=== PATIENT | female | born 1970 | race Caucasian/White ===

== ENCOUNTER 2016-10-06 11:52 | Outpatient (CLI) | payer MEDICARE, OTHER ==
[2016-09-14 10:01] VITALS: BP 163/93
--- NOTE | 2016-10-06 14:42 | Diagnostic Imaging Report ---
[facility] [address] [facility].[address] 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 Difficulty breathing, wheezing for 2 weeks. FINDINGS: Examination of the chest in PA and lateral views with comparison to examination of 06/24/2016 demonstrates infiltrates in the right chest. Infiltrates are less extensive than that seen in June. There is patchy infiltrate also in the left lower lobe. The cardiovascular and mediastinal silhouettes are stable. IMPRESSION: Bilateral infiltrates worse on the right. Electronically signed on Oct 06, 2016 1:51:21 PM PAD MACHINE OPERATOR by: Zana ALMEIDA
== END 2016-10-06 11:53 ==
LOC: LAB 11:52
PROVIDERS: ATTEND Family Medicine
DX: J40 Bronchitis, not specified as acute or chronic (principal)
CPT/HCPCS: 71020

== ENCOUNTER 2016-10-09 12:47 | Emergency (ER) | payer MEDICARE, OTHER ==
[2016-10-09] MEDS ORDERED: ASPIRIN 325 MG TABLET PO ONE (13:01)
--- NOTE | 2016-10-09 13:22 | ED Physician Documentation ---
Chest Pain - HISTORIAN Historian: patient - HPI Stated Complaint: cough, congestion, SOA Chief Complaint: Upper Respiratory Symptoms Additional Information: 46 yo F with ESRD on dialysis M/W/F here for cough, body aches, subjective fever. Also had brief episode of mid sternal sharp CP just after a cough that only lasted a few seconds. She has never had this type of CP before. She did not get dialysis today. Just prior to transport she had a generalized tonic clonic seizure. She states she does have seizure disorder, on several meds for this including depakote. Last known Well Date: 10/10/16 Last Known Well Time: 00:00 - ROS CONST: none MS/LYMPH: none GI/: none EYES/ENT: none SKIN/ENDO: none NEURO/PSYCH: none - PAST HX MD risk factors: hypertension, diabetes Type 2, other (CKD) GI disease: GERD Lung disease: none Allergies/Adverse Reactions: Allergies Allergy/AdvReac Type Severity Reaction Status Date / Time acetaminophen [From Midol] Allergy Verified 10/09/16 13:20 chocolate flavor Allergy Verified 10/09/16 13:20 NSAIDS (Non-Steroidal Allergy Verified 10/09/16 13:20 Anti-Inflamma pamabrom [From Midol] Allergy Verified 10/09/16 13:20 phenytoin sodium Allergy Verified 10/09/16 13:20 [From Dilantin] phenytoin sodium extended Allergy Verified 10/09/16 13:20 [From Dilantin] diphenhydramine HCl AdvReac Face Verified 10/09/16 13:20 [From Benadryl] Swelling Home Medications: Ambulatory Orders Medication Instructions Recorded Atorvastatin Calcium [Lipitor] 80 mg PO HS 10/20/15 Calcium Acetate 667 mg PO TID 10/20/15 Cinacalcet HCl [Sensipar] 30 mg PO D 10/20/15 Escitalopram Oxalate [Lexapro] 20 mg PO D 10/20/15 Gabapentin 100 mg PO HS 10/20/15 Lisinopril 25 mg PO D 10/20/15 Paricalcitol [Zemplar] 2 mcg PO [id number] 10/20/15 Sucralfate [Carafate] 1 gm PO BID 10/20/15 Vit B Comp&C/Folic Acid/Vit D3 1 tab PO D 10/20/15 [Dialyvite 800 Plus D Wafer] levETIRAcetam [Keppra] 500 mg PO BID 10/20/15 Divalproex Sodium [Divalproex 500 mg PO BID 01/17/16 Sodium ER] Ergocalciferol (Vitamin D2) 50,000 unit PO WEEK 01/17/16 [Vitamin D2] Hydrocortisone Acetate [Anusol-Hc] 21 gm RC BID PRN #14 oint...g. 01/17/16 Medroxyprogesterone Acetate 10 mg PO DAILY 01/17/16 [Provera] Ondansetron HCl Rapdis [Zofran ODT] 4 mg PO Q6 PRN 01/17/16 Topiramate [Topamax] 100 mg PO BID 01/17/16 Vit B Cplx #11/FA/C/Biot/Zn Ox 1 each PO 1800 01/17/16 [Dialyvite with Zinc Tablet] Amoxicillin [Trimox] 500 mg PO TID #30 capsule 06/24/16 Azithromycin [Zithromax] 250 mg PO DAILY #4 tablet 06/24/16 Doxycycline Monohydrate 100 mg PO BID #20 tablet 06/24/16 - SOCIAL HX Smoking History: quit greater than 1 year Alcohol Use: none Drug Use: none - FAMILY HX Family HX: none - VITAL SIGNS Vital Signs: Vital Signs Temp Pulse Resp BP Pulse Ox 98.2 F 76 15 155/98 99 10/09/16 13:08 10/09/16 13:08 10/09/16 13:08 10/09/16 13:08 10/09/16 13:08 - REVIEWED ASSESSMENTS Nursing Assessment Reviewed: Yes Vitals Reviewed: Yes ED Results Lab/Radiology - Orders Orders: ED Orders Category Date Time Status CHEST 2 VIEW [CHEST P.A.&LAT 2 VIEWS] [RAD] Stat Exams 10/09/16 13:01 Ordered TROPONIN I (cTnI) Stat Lab 10/09/16 13:05 Received VALPROIC ACID LEVEL Stat Lab 10/09/16 13:05 Received Aspirin Med 10/09/16 13:01 Discontinued 325 mg PO NOW ONE EKG WITH COMPARISON Stat Ther 10/09/16 13:01 Completed Chest Pain Physical Exam - EXAM General Appearance: no acute distress EENT: ENT inspection normal Neck: nml inspection. No: lymphadenopathy Respiratory: no resp. distress, chest non-tender, nml breath sounds CVS: reg. rate & rhythm, no murmur, pulses equal Abdomen: soft, no organomegaly, normal bowel sounds, no distension, non-tender Skin: warm/dry, normal color Extremities: other (fistula LUE with palpable thrill) Neuro: oriented X3 Discharge Clincal Impression: Pneumonia Qualifiers: Pneumonia type: due to unspecified organism Laterality: left Lung location: lower lobe of lung Qualified Code(s): J18.1 - Lobar pneumonia, unspecified organism Referrals: Bharat Ruiz MD [Primary Care Provider] - 2 Days Home Medications: Ambulatory Orders Atorvastatin Calcium [Lipitor] 80 mg PO HS 10/20/15 Calcium Acetate 667 mg PO TID 10/20/15 Cinacalcet HCl [Sensipar] 30 mg PO D 10/20/15 Escitalopram Oxalate [Lexapro] 20 mg PO D 10/20/15 Gabapentin 100 mg PO HS 10/20/15 Lisinopril 25 mg PO D 10/20/15 Paricalcitol [Zemplar] 2 mcg PO [id number] 10/20/15 Sucralfate [Carafate] 1 gm PO BID 10/20/15 Vit B Comp&C/Folic Acid/Vit D3 [Dialyvite 800 Plus D Wafer] 1 tab PO D 10/20/15 levETIRAcetam [Keppra] 500 mg PO BID 10/20/15 Divalproex Sodium [Divalproex Sodium ER] 500 mg PO BID 01/17/16 Ergocalciferol (Vitamin D2) [Vitamin D2] 50,000 unit PO WEEK 01/17/16 Hydrocortisone Acetate [Anusol-Hc] 21 gm RC BID PRN #14 oint...g. 01/17/16 Medroxyprogesterone Acetate [Provera] 10 mg PO DAILY 01/17/16 Ondansetron HCl Rapdis [Zofran ODT] 4 mg PO Q6 PRN 01/17/16 Topiramate [Topamax] 100 mg PO BID 01/17/16 Vit B Cplx #11/FA/C/Biot/Zn Ox [Dialyvite with Zinc Tablet] 1 each PO 1800 01/16 Amoxicillin [Trimox] 500 mg PO TID #30 capsule 06/24/16 Azithromycin [Zithromax] 250 mg PO DAILY #4 tablet 06/24/16 Doxycycline Monohydrate 100 mg PO BID #20 tablet 06/24/16 Comments: found to have PNA, had been treated for recently. Will place on doxy. Vs are stable, no tachycardia, hypoxia, hypotension. RTC prn. F/U With PCM 2 days. Condition: Good Disposition: 01 HOME, SELF-CARE Decision to Admit: NO Decision Time: 14:35
--- NOTE | 2016-10-09 14:31 | Diagnostic Imaging Report ---
KULDEEP HUMMEL [facility] [address] [facility] [address] [address] Report Submission Date: Oct 09, 2016 1:59:24 PM AIRFIELD MANAGER Patient Study Name: TUSHAR BROWNE Date: Oct 09, 2016 1:13:25 PM AIRFIELD MANAGER Modality Type: CR Gender: F Description: CHEST : 74 Institution: [facility] Physician: KULDEEP HUMMEL Chest -two views CLINICAL HISTORY: Chest pain and cough. FINDINGS: Examination of the chest in PA and lateral views with comparison to examination of 10/06/2016 demonstrates minimal infiltrate in the left base in the costophrenic angle. There is mild prominence of the bronchovascular markings. Grisel are prominent, but not significantly changed. Monitor leads superimpose the chest. IMPRESSION: Patchy infiltrate left base. Prominent bronchovascular markings. Prominence of the pulmonary grisel that appears stable. Electronically signed on Oct 09, 2016 1:59:24 PM AIRFIELD MANAGER by: Zana ALMEIDA
[2016-10-09 14:42] VITALS: BP 150/86
== END 2016-10-09 14:39 | disposition home or self-care (01) ==
LOC: ED 12:47
DX: R07.9 Chest pain, unspecified (principal); G40.909 Epilepsy, unspecified, not intractable, without status epilepticus; N18.6 End stage renal disease; Z99.2 Dependence on renal dialysis
CPT/HCPCS: 71020; 80164; 84484; 99282; 99284; S1016

== ENCOUNTER 2016-11-03 13:33 | Emergency (ER) | payer MEDICARE, OTHER ==
[2016-11-03] MEDS ORDERED: DIAZEPAM 5 MG/ML DISP.SYRIN ONE (13:43)
[2016-11-03] MEDS ORDERED: DIAZEPAM 5 MG/ML DISP.SYRIN IVP ONE (13:56)
[2016-11-03] MEDS ORDERED: 0.9 % SODIUM CHLORIDE 500 ML IV ONE (13:56)
[2016-11-03] MEDS ORDERED: hydrALAZINE HCL 20 MG/1 ML IVP ONE (14:00)
[2016-11-03 14:09] LABS: BASOPHILS % 0.6 (0.0-1.5); EOSINOPHILS % 2.8 % (0.0-6.8); LYMPHOCYTES # 1.1 # k/uL (0.6-4.0); MEAN CORPUSCULAR HEMOGLOBIN 33.7 pg (28.0-34.0); MONOCYTES # 0.2 # k/uL (0.0-0.9); MONOCYTES % 6.4 % (0.0-11.0); NEUTROPHILS # 2.1 # k/uL (1.4-7.7)
[2016-11-03 14:24] LABS: eGFR (African) 12; eGFR (Non-African) 10
[2016-11-03] MEDS ORDERED: CARBAMAZEPINE 200 MG TABLET PO ONE (15:40)
[2016-11-03] MEDS ORDERED: PHENobarbital 30 MG TABLET PO SCH (16:00)
[2016-11-03 17:16] VITALS: BP 173/105
--- NOTE | 2016-11-03 18:11 | ED Physician Documentation ---
Seizure - HISTORIAN Historian: patient, paramedics - [facility] Stated Complaint: seizure Chief Complaint: Seizure Additional Information: 13 minute status epilepticus activity in local dialysis facility Timing/Onset/Duration: multiple episodes, status epilepticus, continued on arrival Last known Well Date: 11/03/16 Last Known Well Time: 13:30 Last known Well Code/Unknown Code: Unknown Witnessed By: other (facility personnel) Preceding Symptoms: other (dialysis) Character of Seizure(s): "shaking all over". denies: incontinence of urine, incontinence of stool Postictal Symptoms: other (fatigue) Location of Injury: none Further Comments: no - ROS NEURO/PSYCH: headache. 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 Immunizations: referred to PCP Allergies/Adverse Reactions: Allergies Allergy/AdvReac Type Severity Reaction Status Date / Time acetaminophen [From Midol] Allergy Verified 10/09/16 13:20 chocolate flavor Allergy Verified 10/09/16 13:20 NSAIDS (Non-Steroidal Allergy Verified 10/09/16 13:20 Anti-Inflamma pamabrom [From Midol] Allergy Verified 10/09/16 13:20 phenytoin sodium Allergy Verified 10/09/16 13:20 [From Dilantin] phenytoin sodium extended Allergy Verified 10/09/16 13:20 [From Dilantin] diphenhydramine HCl AdvReac Face Verified 10/09/16 13:20 [From Benadryl] Swelling Home Medications: Ambulatory Orders Medication Instructions Recorded Atorvastatin Calcium [Lipitor] 80 mg PO HS 10/20/15 Calcium Acetate 667 mg PO TID 10/20/15 Cinacalcet HCl [Sensipar] 30 mg PO D 10/20/15 Escitalopram Oxalate [Lexapro] 20 mg PO D 10/20/15 Gabapentin 100 mg PO HS 10/20/15 Lisinopril 25 mg PO D 10/20/15 Paricalcitol [Zemplar] 2 mcg PO [id number] 10/20/15 Sucralfate [Carafate] 1 gm PO BID 10/20/15 Vit B Comp&C/Folic Acid/Vit D3 1 tab PO D 10/20/15 [Dialyvite 800 Plus D Wafer] levETIRAcetam [Keppra] 500 mg PO BID 10/20/15 Divalproex Sodium [Divalproex 500 mg PO BID 01/17/16 Sodium ER] Ergocalciferol (Vitamin D2) 50,000 unit PO WEEK 01/17/16 [Vitamin D2] Hydrocortisone Acetate [Anusol-Hc] 21 gm RC BID PRN #14 oint...g. 01/17/16 Medroxyprogesterone Acetate 10 mg PO DAILY 01/17/16 [Provera] Ondansetron HCl Rapdis [Zofran ODT] 4 mg PO Q6 PRN 01/17/16 Topiramate [Topamax] 100 mg PO BID 01/17/16 Vit B Cplx #11/FA/C/Biot/Zn Ox 1 each PO 1800 01/17/16 [Dialyvite with Zinc Tablet] Amoxicillin [Trimox] 500 mg PO TID #30 capsule 06/24/16 Azithromycin [Zithromax] 250 mg PO DAILY #4 tablet 06/24/16 Doxycycline Monohydrate 100 mg PO BID #20 tablet 06/24/16 - SOCIAL HX Smoking History: cigarettes Alcohol Use: none Drug Use: none - FAMILY HX Family History: none - VITAL SIGNS Vital Signs: Vital Signs Temp Pulse Resp BP Pulse Ox 98.6 F 83 18 173/105 100 11/03/16 17:13 11/03/16 17:13 11/03/16 17:13 11/03/16 17:13 11/03/16 17:13 - REVIEWED ASSESSMENTS Nursing Assessment Reviewed: Yes Vitals Reviewed: Yes Progress - Results/Orders Results/Orders: cbc, cmp, ua, uds, etoh, cxr, ct head ordered - Progress Progress: Pt. stablilized with 1 liter NS, 5 mg Valium ivp, Tegretol 200 mg p.o. Critical Care Note - Critical Care Note Total Time (mins): 0 ED Results Lab/Radiology - Lab Results Lab Results: Lab Results 11/03/16 11/03/16 11/03/16 14:00 14:00 14:00 WBC 3.70 K/ul L K/ul (4.00-12.00) RBC 2.59 M/ul L M/ul (3.90-5.20) Hgb 8.7 g/dL L g/dL (12.0-16.0) Hct 26.3 % L % (34.5-46.5) MCV 101.5 fl H fl (80.0-100.0) MCH 33.7 pg pg (28.0-34.0) MCHC 33.2 g/dL g/dL (30.0-36.0) RDW 14.8 % H % (11.3-14.3) Plt Count 167 K/mm3 K/mm3 (130-400) Neut % (Auto) 57.3 % % (39.0-79.0) Lymph % (Auto) 30.4 % % (16.0-50.0) [place] % (Auto) 6.4 % % (0.0-11.0) Eos % (Auto) 2.8 % % (0.0-6.8) Baso % (Auto) 0.6 (0.0-1.5) Neut # 2.1 # k/uL # k/uL (1.4-7.7) Lymph # 1.1 # k/uL # k/uL (0.6-4.0) [place] # 0.2 # k/uL # k/uL (0.0-0.9) Eos # 0.1 # k/uL # k/uL (0.0-0.6) Baso # 0.0 # k/uL # k/uL (0.0-0.5) Reactive Lymphs % 2.5 % % (0.0-5.0) Reactive Lymphs # 0.1 # k/uL # k/uL (0.0-0.8) PT 11.4 Seconds Seconds (9.7-11.5) INR 1.1 (0.9-1.1) APTT 25.6 Seconds Seconds (24.5-32.8) Sodium 140 mmol/L mmol/L (136-145) Potassium 3.7 mmol/L mmol/L (3.5-5.0) Chloride 100 mmol/L mmol/L (98-110) Carbon Dioxide 32 mmol/L mmol/L (20-32) BUN 25 mg/dL mg/dL (10-26) Creatinine 5.0 mg/dL H mg/dL (0.4-1.5) Estimated Creat Clear 14 Est GFR ( Amer) 12 L (60 - ) Est GFR (Non-Af Amer) 10 L (60 - ) Glucose 115 mg/dL H mg/dL (70-99) Calcium 8.9 mg/dL mg/dL (8.5-10.5) Total Bilirubin 0.3 mg/dL mg/dL (0.2-1.2) AST 28 U/L U/L (0-41) ALT 25 U/L U/L (0-45) Alkaline Phosphatase 466 U/L H U/L (46-116) Total Protein 6.9 g/dL g/dL (6.0-8.5) Albumin 3.8 g/dL g/dL (3.0-5.5) Ethyl Alcohol < 10.0 MG/DL MG/DL (<10.0) - Radiology Radiology Impressions: ct head, cxr unremarkable - Orders Orders: ED Orders Category Date Time Status Place Saline Lock/IV Now Care 11/03/16 13:56 Active CHEST 1 VIEW [RAD] Routine Exams 11/03/[address] BRAIN W/O CONTRAST Stat Exams 11/03/16 Completed CBC/PLATELET/DIFF Routine Lab 11/03/16 14:00 Completed CMP Routine Lab 11/03/16 14:00 Completed ETHANOL MEDICAL USE ONLY Routine Lab 11/03/16 14:00 Completed PT-INR Routine Lab 11/03/16 14:00 Completed PTT Routine Lab 11/03/16 14:00 Completed 0.9 % Sodium Chloride [Normal Saline] 500 ml Med 11/03/16 13:56 Discontinued IV NOW Carbamazepine [Tegretol] Med 11/03/16 15:40 Discontinued 200 mg PO NOW ONE Diazepam [Valium] Med 11/03/16 13:43 Discontinued 5 mg .ROUTE .STK-MED ONE Diazepam [Valium] Med 11/03/16 13:56 Discontinued 5 mg IVP NOW ONE PHENobarbital [Luminal] Med 11/03/16 16:00 Discontinued 30 mg PO 1T hydrALAZINE HCL [Apresoline] Med 11/03/16 14:00 Discontinued 10 mg IVP NOW ONE EKG WITH COMPARISON Routine Ther 11/03/16 Ordered Seizure Physical Exam - Physical Exam General Appearance: convulsing Altered Mental Status Higher Functions: no evidence of acute CVA, other (active tonic-clonic seizure activity) EENT: nasal septal hematoma, nml ENT inspection, no apparent trauma, pharynx nml , other (eyes upturned) Neck/Back: normal inspection, thyroid normal, supple Respiratory: no resp. distress, breath sounds nml, no evidence of rib injury CVS: reg rate & rhythm, heart sounds normal, equal pulses Abdomen: non-tender, no organomegaly, nml bowel sounds, no distention Skin: warm/dry, normal color Extremities: normal range of motion, non-tender, normal inspection, no pedal edema, no calf tenderness, normal capillary refill Observed Seizure Activity in ED: generalized Seizure Duration: 2 (minutes) - Nexus Criteria Neg Nexus Criteria: Nexus criteria neg Discharge Clincal Impression: Seizure disorder Referrals: Bharat Ruiz MD [Primary Care Provider] - 2 Days Home Medications: Ambulatory Orders Atorvastatin Calcium [Lipitor] 80 mg PO HS 10/20/15 Calcium Acetate 667 mg PO TID 10/20/15 Cinacalcet HCl [Sensipar] 30 mg PO D 10/20/15 Escitalopram Oxalate [Lexapro] 20 mg PO D 10/20/15 Gabapentin 100 mg PO HS 10/20/15 Lisinopril 25 mg PO D 10/20/15 Paricalcitol [Zemplar] 2 mcg PO [id number] 10/20/15 Sucralfate [Carafate] 1 gm PO BID 10/20/15 Vit B Comp&C/Folic Acid/Vit D3 [Dialyvite 800 Plus D Wafer] 1 tab PO D 10/20/15 levETIRAcetam [Keppra] 500 mg PO BID 10/20/15 Divalproex Sodium [Divalproex Sodium ER] 500 mg PO BID 01/17/16 Ergocalciferol (Vitamin D2) [Vitamin D2] 50,000 unit PO WEEK 01/17/16 Hydrocortisone Acetate [Anusol-Hc] 21 gm RC BID PRN #14 oint...g. 01/17/16 Medroxyprogesterone Acetate [Provera] 10 mg PO DAILY 01/17/16 Ondansetron HCl Rapdis [Zofran ODT] 4 mg PO Q6 PRN 01/17/16 Topiramate [Topamax] 100 mg PO BID 01/17/16 Vit B Cplx #11/FA/C/Biot/Zn Ox [Dialyvite with Zinc Tablet] 1 each PO 1800 01/16 Amoxicillin [Trimox] 500 mg PO TID #30 capsule 06/24/16 Azithromycin [Zithromax] 250 mg PO DAILY #4 tablet 06/24/16 Doxycycline Monohydrate 100 mg PO BID #20 tablet 06/24/16 Comments: discharged in stable condition with script for tegretol 200 mg p.o. bid Condition: Stable Disposition: 01 HOME, SELF-CARE Decision to Admit: NO Decision Time: 17:05
--- NOTE | 2016-11-04 01:22 | Diagnostic Imaging Report ---
JOSHUA AU~ [facility] [address] [facility].[address] [address] ~ ~ ~ ~ Report Submission Date: Nov 03, 2016 3:06:13 PM CDT Patient ~ Study Name: TUSHAR BROWNE ~ Date: Nov 03, 2016 2:27:08 PM CDT ~ Modality Type: CT\SR Gender: F ~ Description: CT BRAIN W/O CONTRAST : 74 ~ Institution: [facility] Physician: JOSHUA AU ~ ~ ~ ~ CT brain without IV contrast Clinical history: Seizures Radiation dose DLP 709 3.5 cm old infarct versus postsurgical scar in the left parietal lobe with evidence for previous the left parietal craniotomy . No bleeding , midline shift or hydrocephalus. No visible mass lesions. 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
--- NOTE | 2016-11-04 01:23 | Diagnostic Imaging Report ---
[facility] [address] [facility].[address] [address] ~ ~ ~ ~ Report Submission Date: Nov 03, 2016 3:07:44 PM CDT Patient ~ Study Name: TUSHAR BROWNE ~ Date: Nov 03, 2016 2:35:54 PM CDT ~ Modality Type: CR Gender: F ~ Description: CHEST : 74 ~ Institution: [facility] Physician JOSHUA AU ~ ~ ~ Single-view chest HISTORY: ~ Seizures FINDINGS: ~ Minimal hazy infiltrate or atelectasis is present at each lung base, not significantly changed since the 10/09/16 exam. ~Heart size and pulmonary vascularity are normal. ~No pleural effusions are observed. ~A vascular stent is present in the left upper extremity. ~ IMPRESSION: ~ Mild hazy bibasilar infiltrate, atelectasis, or edema without change. ~ Electronically signed on Nov 03, 2016 3:07:44 PM CDT by: Nikolay ALMEIDA
== END 2016-11-03 16:30 | disposition home or self-care (01) ==
LOC: ED 13:33
DX: G40.909 Epilepsy, unspecified, not intractable, without status epilepticus (principal)
CPT/HCPCS: 70450; 71010; 80053; 85025; 85610; 85730; 93005; G0480; J0360; J3360; J7060; 80320; 96374; 96375; 99283; 99284; S1016

== ENCOUNTER 2016-11-23 15:50 | Emergency (ER) | payer MEDICARE, OTHER ==
[2016-11-23] MEDS ORDERED: GABAPENTIN 100 MG CAPSULE ONE (16:42)
[2016-11-23 16:44] LABS: BASOPHILS % 0.5 (0.0-1.5); MEAN CORPUSCULAR HEMOGLOBIN 33.2 pg (28.0-34.0); MONOCYTES % 6.9 % (0.0-11.0); NEUTROPHILS # 2.2 # k/uL (1.4-7.7)
[2016-11-23] MEDS ORDERED: GABAPENTIN 300 MG CAPSULE PO SCH (17:00)
--- NOTE | 2016-11-23 17:28 | ED Physician Documentation ---
Seizure - HISTORIAN Historian: patient - HPI Stated Complaint: seizure Chief Complaint: Seizure Additional Information: multiple small seizures today Timing/Onset/Duration: multiple episodes. denies: status epilepticus Last known Well Date: 11/22/16 Last Known Well Time: 13:00 Last known Well Code/Unknown Code: Unknown Witnessed By: family Preceding Symptoms: none Activity Prior to Seizure: watching tv Character of Seizure(s): "shaking all over" Postictal Symptoms: none Location of Injury: none Further Comments: no - ROS NEURO/PSYCH: denies: headache, fainting, dizziness, anxiety, depression EYES/ENT: none CVS/RESP: none GI/: denies: adominal pain, nausea, vomiting, diarrhea, black stools, problems urinating MS/SKIN/LYMPH: none - PAST HX Previous seizure/seizure disorder: long-standing Etiology: head injury Other History: hypertension, psychiatric disorder, other (crf) 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 Immunizations: referred to PCP Allergies/Adverse Reactions: Allergies Allergy/AdvReac Type Severity Reaction Status Date / Time acetaminophen [From Midol] Allergy Verified 11/23/16 16:01 chocolate flavor Allergy Verified 11/23/16 16:01 NSAIDS (Non-Steroidal Allergy Verified 11/23/16 16:01 Anti-Inflamma pamabrom [From Midol] Allergy Verified 11/23/16 16:01 phenytoin sodium Allergy Verified 11/23/16 16:01 [From Dilantin] phenytoin sodium extended Allergy Verified 11/23/16 16:01 [From Dilantin] diphenhydramine HCl AdvReac Face Verified 11/23/16 16:01 [From Benadryl] Swelling Home Medications: Ambulatory Orders Medication Instructions Recorded Atorvastatin Calcium [Lipitor] 80 mg PO HS 10/20/15 Calcium Acetate 667 mg PO TID 10/20/15 Cinacalcet HCl [Sensipar] 30 mg PO D 10/20/15 Gabapentin 100 mg PO HS 10/20/15 Lisinopril 20 mg PO D 10/20/15 Paricalcitol [Zemplar] 2 mcg PO [id number] 10/20/15 Vit B Comp&C/Folic Acid/Vit D3 1 tab PO D 10/20/15 [Dialyvite 800 Plus D Wafer] levETIRAcetam [Keppra] 500 mg PO BID 10/20/15 Divalproex Sodium [Divalproex 500 mg PO BID 01/17/16 Sodium ER] Ergocalciferol (Vitamin D2) 50,000 unit PO WEEK 01/17/16 [Vitamin D2] Medroxyprogesterone Acetate 10 mg PO DAILY 01/17/16 [Provera] Ondansetron HCl Rapdis [Zofran ODT] 4 mg PO Q6 PRN 01/17/16 Topiramate [Topamax] 150 mg PO BID 01/17/16 Vit B Cplx #11/FA/C/Biot/Zn Ox 1 each PO 1800 01/17/16 [Dialyvite with Zinc Tablet] Quetiapine Fumarate [Seroquel] 50 mg PO BID 11/23/16 - SOCIAL HX Smoking History: cigarettes Alcohol Use: none Drug Use: none - FAMILY HX Family History: none - VITAL SIGNS Vital Signs: Vital Signs Temp Pulse Resp BP Pulse Ox 67 18 153/92 97 11/23/16 16:00 11/23/16 16:00 11/23/16 16:00 11/23/16 16:00 - REVIEWED ASSESSMENTS Nursing Assessment Reviewed: Yes Vitals Reviewed: Yes Progress - Results/Orders Results/Orders: cbc, cmp ordered - Progress Progress: pt. given 300 mg gabapentin p.o. in er Critical Care Note - Critical Care Note Total Time (mins): 0 ED Results Lab/Radiology - Lab Results Lab Results: Lab Results 11/23/16 11/23/16 16:35 16:35 WBC 4.30 K/ul K/ul (4.00-12.00) RBC 2.68 M/ul L M/ul (3.90-5.20) Hgb 8.9 g/dL L g/dL (12.0-16.0) Hct 27.8 % L % (34.5-46.5) MCV 104.0 fl H fl (80.0-100.0) MCH 33.2 pg pg (28.0-34.0) MCHC 31.9 g/dL g/dL (30.0-36.0) RDW 14.8 % H % (11.3-14.3) Plt Count 146 K/mm3 K/mm3 (130-400) Neut % (Auto) 50.5 % % (39.0-79.0) Lymph % (Auto) 37.3 % % (16.0-50.0) [place] % (Auto) 6.9 % % (0.0-11.0) Eos % (Auto) 3.0 % % (0.0-6.8) Baso % (Auto) 0.5 (0.0-1.5) Neut # 2.2 # k/uL # k/uL (1.4-7.7) Lymph # 1.6 # k/uL # k/uL (0.6-4.0) [place] # 0.3 # k/uL # k/uL (0.0-0.9) Eos # 0.1 # k/uL # k/uL (0.0-0.6) Baso # 0.0 # k/uL # k/uL (0.0-0.5) Reactive Lymphs % 1.9 % % (0.0-5.0) Reactive Lymphs # 0.1 # k/uL # k/uL (0.0-0.8) Sodium 143 mmol/L mmol/L (136-145) Potassium 6.0 mmol/L H mmol/L (3.5-5.0) Chloride 106 mmol/L mmol/L (98-110) Carbon Dioxide 33 mmol/L H mmol/L (20-32) BUN 62 mg/dL H mg/dL (10-26) Creatinine 6.1 mg/dL H mg/dL (0.4-1.5) Estimated Creat Clear 12 Est GFR ( Amer) 10 L (60 - ) Est GFR (Non-Af Amer) 8 L (60 - ) Glucose 83 mg/dL mg/dL (70-99) Calcium 8.9 mg/dL mg/dL (8.5-10.5) Total Bilirubin 0.2 mg/dL mg/dL (0.2-1.2) AST 18 U/L U/L (0-41) ALT 16 U/L U/L (0-45) Alkaline Phosphatase 394 U/L H U/L (46-116) Total Protein 6.8 g/dL g/dL (6.0-8.5) Albumin 3.7 g/dL g/dL (3.0-5.5) - Radiology Radiology Impressions: none ordered - Orders Orders: ED Orders Category Date Time Status CBC/PLATELET/DIFF Routine Lab 11/23/16 16:35 Completed CMP Routine Lab 11/23/16 16:35 Completed Gabapentin [Neurontin] Med 11/23/16 16:42 Discontinued 300 mg .ROUTE .STK-MED ONE Gabapentin [Neurontin] Med 11/23/16 17:00 Ordered 300 mg PO 1T Seizure Physical Exam - Physical Exam General Appearance: no acute distress Altered Mental Status Higher Functions: alert, oriented x3 EENT: nml eye inspection, PERRL Neck/Back: normal inspection, thyroid normal, supple Respiratory: no resp. distress, breath sounds nml, no evidence of rib injury CVS: reg rate & rhythm, heart sounds normal, equal pulses, no murmur, no gallop , PMI nml, no JVD, no friction rub Abdomen: non-tender, no organomegaly, nml bowel sounds Skin: warm/dry, normal color Extremities: normal range of motion, non-tender, normal inspection, no pedal edema, no calf tenderness Observed Seizure Activity in ED: awake - Nexus Criteria Neg Nexus Criteria: Nexus criteria neg Discharge Clincal Impression: Seizure disorder Referrals: Bharat Ruiz MD [Primary Care Provider] - 2 Days Home Medications: Ambulatory Orders Atorvastatin Calcium [Lipitor] 80 mg PO HS 10/20/15 Calcium Acetate 667 mg PO TID 10/20/15 Cinacalcet HCl [Sensipar] 30 mg PO D 10/20/15 Gabapentin 100 mg PO HS 10/20/15 Lisinopril 20 mg PO D 10/20/15 Paricalcitol [Zemplar] 2 mcg PO [id number] 10/20/15 Vit B Comp&C/Folic Acid/Vit D3 [Dialyvite 800 Plus D Wafer] 1 tab PO D 10/20/15 levETIRAcetam [Keppra] 500 mg PO BID 10/20/15 Divalproex Sodium [Divalproex Sodium ER] 500 mg PO BID 01/17/16 Ergocalciferol (Vitamin D2) [Vitamin D2] 50,000 unit PO WEEK 01/17/16 Medroxyprogesterone Acetate [Provera] 10 mg PO DAILY 01/17/16 Ondansetron HCl Rapdis [Zofran ODT] 4 mg PO Q6 PRN 01/17/16 Topiramate [Topamax] 150 mg PO BID 01/17/16 Vit B Cplx #11/FA/C/Biot/Zn Ox [Dialyvite with Zinc Tablet] 1 each PO 1800 01/16 Quetiapine Fumarate [Seroquel] 50 mg PO BID 11/23/16 Comments: discharged in stable condition with script for gabapentin 300 mg in am, 300 mg at noon, 600 mg at hs Condition: Stable Disposition: 01 HOME, SELF-CARE Decision to Admit: NO Decision Time: 17:45
[2016-11-23 17:56] VITALS: BP 168/98
== END 2016-11-23 17:50 | disposition home or self-care (01) ==
LOC: ED 15:50
DX: G40.909 Epilepsy, unspecified, not intractable, without status epilepticus (principal); F17.210 Nicotine dependence, cigarettes, uncomplicated
CPT/HCPCS: 36415; 80053; 85025; 99283

== ENCOUNTER 2016-11-24 06:41 | Emergency (ER) | payer MEDICARE, OTHER ==
[2016-11-24] MEDS ORDERED: HALOPERIDOL LACTATE 5 MG/ML VIAL IM ONE (07:00)
--- NOTE | 2016-11-24 07:10 | ED Physician Documentation ---
General Adult - HISTORIAN Historian: patient - HPI Stated Complaint: Muscle Spasms Chief Complaint: General Adult Additional Information: shaking all over Onset: hours (1-2) Timing: still present Severity: moderate Modifying Factors: potassium 6, dialysis day Context: none Quality: generalized Further Comments: no - ROS CONST: no problems EYES/ENT: none CVS/RESP: none GI/: none MS/SKIN/LYMPH: none NEURO/PSYCH: other (shaking) - PAST HX Past History: other (seizure disorder, hypertension, psychiatric disorder) Surgeries/Procedures: other (vp of global marketing shunt) Immunizations: referred to PCP Allergies/Adverse Reactions: Allergies Allergy/AdvReac Type Severity Reaction Status Date / Time acetaminophen [From Midol] Allergy Verified 11/24/16 07:02 chocolate flavor Allergy Verified 11/24/16 07:02 NSAIDS (Non-Steroidal Allergy Verified 11/24/16 07:02 Anti-Inflamma pamabrom [From Midol] Allergy Verified 11/24/16 07:02 phenytoin sodium Allergy Verified 11/24/16 07:02 [From Dilantin] phenytoin sodium extended Allergy Verified 11/24/16 07:02 [From Dilantin] diphenhydramine HCl AdvReac Face Verified 11/24/16 07:02 [From Benadryl] Swelling Home Medications: Ambulatory Orders Medication Instructions Recorded Atorvastatin Calcium [Lipitor] 80 mg PO HS 10/20/15 Calcium Acetate 667 mg PO TID 10/20/15 Cinacalcet HCl [Sensipar] 30 mg PO D 10/20/15 Gabapentin 100 mg PO HS 10/20/15 Lisinopril 20 mg PO D 10/20/15 Paricalcitol [Zemplar] 2 mcg PO [id number] 10/20/15 Vit B Comp&C/Folic Acid/Vit D3 1 tab PO D 10/20/15 [Dialyvite 800 Plus D Wafer] levETIRAcetam [Keppra] 500 mg PO BID 10/20/15 Divalproex Sodium [Divalproex 500 mg PO BID 01/17/16 Sodium ER] Ergocalciferol (Vitamin D2) 50,000 unit PO WEEK 01/17/16 [Vitamin D2] Medroxyprogesterone Acetate 10 mg PO DAILY 01/17/16 [Provera] Ondansetron HCl Rapdis [Zofran ODT] 4 mg PO Q6 PRN 01/17/16 Topiramate [Topamax] 150 mg PO BID 01/17/16 Vit B Cplx #11/FA/C/Biot/Zn Ox 1 each PO 1800 01/17/16 [Dialyvite with Zinc Tablet] Quetiapine Fumarate [Seroquel] 50 mg PO BID 11/23/16 - SOCIAL HX Smoking History: cigarettes Alcohol Use: none Drug Use: none - FAMILY HX Family History: No - VITAL SIGNS Vital Signs: Vital Signs Temp Pulse Resp BP Pulse Ox 97 F L 75 18 165/89 96 11/24/16 06:45 11/24/16 06:45 11/24/16 06:45 11/24/16 06:45 11/24/16 06:45 - REVIEWED ASSESSMENTS Nursing Assessment Reviewed: Yes Vitals Reviewed: Yes Progress - Results/Orders Results/Orders: no testing done - Progress Progress: pt. given Haldol 10 mg im in er Critical Care Note - Critical Care Note Total Time (mins): 0 ED Results Lab/Radiology - Lab Results Lab Results: none ordered - Radiology Radiology Impressions: none ordered - Orders Orders: ED Orders Category Date Time Status Haloperidol Lactate [Haldol] Med 11/24/16 07:00 Discontinued 10 mg IM NOW ONE General Adult Physical Exam - PHYSICAL EXAM GENERAL APPEARANCE: moderate distress EENT: eye inspection normal, ENT inspection normal, pharynx normal, no signs of dehydration, GLADYS, no nystagmus, TM's nml NECK: normal inspection, thyroid normal, supple RESPIRATORY: no resp distress, chest non-tender, breath sounds normal CVS: reg rate & rhythm, heart sounds normal, equal pulses, no murmur, no gallop , PMI nml, no JVD, no friction rub ABDOMEN: soft, no organomegaly, normal bowel sounds, no abdominal bruit, no distension, non-tender BACK: normal inspection, no CVA tenderness SKIN: warm/dry EXTREMITIES: non-tender, normal range of motion, no evidence of injury, no edema NEURO: oriented X3, CN's nml as tested, sensation nml, other (generalized shaking, aggrevated when medical personnel in room) Discharge Clincal Impression: Pseudoseizures Referrals: Bharat Ruiz MD [Primary Care Provider] - 2 Days Home Medications: Ambulatory Orders Atorvastatin Calcium [Lipitor] 80 mg PO HS 10/20/15 Calcium Acetate 667 mg PO TID 10/20/15 Cinacalcet HCl [Sensipar] 30 mg PO D 10/20/15 Gabapentin 100 mg PO HS 10/20/15 Lisinopril 20 mg PO D 10/20/15 Paricalcitol [Zemplar] 2 mcg PO [id number] 10/20/15 Vit B Comp&C/Folic Acid/Vit D3 [Dialyvite 800 Plus D Wafer] 1 tab PO D 10/20/15 levETIRAcetam [Keppra] 500 mg PO BID 10/20/15 Divalproex Sodium [Divalproex Sodium ER] 500 mg PO BID 01/17/16 Ergocalciferol (Vitamin D2) [Vitamin D2] 50,000 unit PO WEEK 01/17/16 Medroxyprogesterone Acetate [Provera] 10 mg PO DAILY 01/17/16 Ondansetron HCl Rapdis [Zofran ODT] 4 mg PO Q6 PRN 01/17/16 Topiramate [Topamax] 150 mg PO BID 01/17/16 Vit B Cplx #11/FA/C/Biot/Zn Ox [Dialyvite with Zinc Tablet] 1 each PO 1800 01/16 Quetiapine Fumarate [Seroquel] 50 mg PO BID 11/23/16 Comments: discharged in nonseizure state told to get dialysis and follow up with primary care, neurology and psychiatry Condition: Stable Disposition: 01 HOME, SELF-CARE Decision to Admit: NO Decision Time: 08:00
[2016-11-24 08:20] VITALS: BP 150/99
== END 2016-11-24 08:18 | disposition home or self-care (01) ==
LOC: ED 06:41
DX: R56.9 Unspecified convulsions (principal)
CPT/HCPCS: 96372; 99283; J1630

== ENCOUNTER 2016-11-25 19:10 | Emergency (ER) | payer MEDICARE, OTHER ==
--- NOTE | 2016-11-25 19:29 | ED Physician Documentation ---
Seizure - HISTORIAN Historian: other (patient has) - HPI Chief Complaint: General Adult Last known Well Date: 11/25/16 Last Known Well Time: 08:00 Last known Well Code/Unknown Code: Known Witnessed By: family Preceding Symptoms: denies: fever, chills Character of Seizure(s): "shaking all over" Postictal Symptoms: confusion Location of Injury: none Further Comments: yes (Kush has a history of seizures. Family states that she has had four today. No precipitating factors noted. Has had her medications adjusted some but does not seem to be helping. Gabapentin, Depakote, Keppra,) - ROS NEURO/PSYCH: denies: headache, depression EYES/ENT: none CVS/RESP: none GI/: denies: nausea, vomiting, diarrhea MS/SKIN/LYMPH: none - PAST HX Previous seizure/seizure disorder: frequent Etiology: idiopathic Surgeries/Procedures: other (has has some type of brain surgery) Allergies/Adverse Reactions: Allergies Allergy/AdvReac Type Severity Reaction Status Date / Time acetaminophen [From Midol] Allergy Verified 11/25/16 19:15 chocolate flavor Allergy Verified 11/25/16 19:15 NSAIDS (Non-Steroidal Allergy Verified 11/25/16 19:15 Anti-Inflamma pamabrom [From Midol] Allergy Verified 11/25/16 19:15 phenytoin sodium Allergy Verified 11/25/16 19:15 [From Dilantin] phenytoin sodium extended Allergy Verified 11/25/16 19:15 [From Dilantin] diphenhydramine HCl AdvReac Face Verified 11/25/16 19:15 [From Benadryl] Swelling Home Medications: Ambulatory Orders Medication Instructions Recorded Atorvastatin Calcium [Lipitor] 80 mg PO HS 10/20/15 Calcium Acetate 667 mg PO TID 10/20/15 Cinacalcet HCl [Sensipar] 30 mg PO D 10/20/15 Lisinopril 20 mg PO D 10/20/15 Paricalcitol [Zemplar] 2 mcg PO [id number] 10/20/15 Vit B Comp&C/Folic Acid/Vit D3 1 tab PO D 10/20/15 [Dialyvite 800 Plus D Wafer] levETIRAcetam [Keppra] 500 mg PO BID 10/20/15 Divalproex Sodium [Divalproex 500 mg PO BID 05/30/16 Sodium ER] Ergocalciferol (Vitamin D2) 50,000 unit PO WEEK 01/17/16 [Vitamin D2] Medroxyprogesterone Acetate 10 mg PO DAILY 01/17/16 [Provera] Ondansetron HCl Rapdis [Zofran ODT] 4 mg PO Q6 PRN 01/17/16 Topiramate [Topamax] 150 mg PO BID 01/17/16 Vit B Cplx #11/FA/C/Biot/Zn Ox 1 each PO 1800 01/17/16 [Dialyvite with Zinc Tablet] Quetiapine Fumarate [Seroquel] 50 mg PO BID 11/23/16 - SOCIAL HX Smoking History: less than 1 pack/day (1/2) Alcohol Use: none Drug Use: none - FAMILY HX Family History: none - VITAL SIGNS Vital Signs: Vital Signs Temp Pulse Resp BP Pulse Ox 98.2 F 79 18 157/95 100 11/25/16 21:00 11/25/16 21:00 11/25/16 21:00 11/25/16 21:00 11/25/16 21:00 - REVIEWED ASSESSMENTS Nursing Assessment Reviewed: Yes Vitals Reviewed: Yes Progress - Progress Progress: 19:41 Patient has had two seizures since arrival in the EDl appears to be tonic clonic with turning the head to the left. Lasting 90-120 seconds. Patient is lethagic for short period of time afterwards. 20:15 Intraosseous established. No further seizures noted. ED Results Lab/Radiology - Orders Orders: ED Orders Category Date Time Status Place Saline Lock/IV Now Care 11/25/16 19:45 Active Lidocaine 1% 5ml(IM or SUTURE) [Xylocaine] Med 11/25/16 20:13 Discontinued 50 mg .ROUTE .STK-MED ONE Seizure Physical Exam - Physical Exam General Appearance: no acute distress, lethargic Altered Mental Status Higher Functions: no evidence of acute CVA, mood/affect nml, eyes open, withdraws, cognition abnml (dorwsiy) Neck/Back: normal inspection, thyroid normal, supple Respiratory: no resp. distress, breath sounds nml. No: rales, rhonchi, crepitus CVS: reg rate & rhythm, heart sounds normal, equal pulses Abdomen: non-tender, no organomegaly Skin: warm/dry, normal color Extremities: normal range of motion, non-tender, normal inspection, other ( shunt left arm) Observed Seizure Activity in ED: generalized, head turned left - Nexus Criteria Neg Nexus Criteria: altered mental status Discharge Clincal Impression: Seizure, Chronic renal failure Referrals: Bharat Ruiz MD [Primary Care Provider] - 2 Days Home Medications: Ambulatory Orders Atorvastatin Calcium [Lipitor] 80 mg PO HS 10/20/15 Calcium Acetate 667 mg PO TID 10/20/15 Cinacalcet HCl [Sensipar] 30 mg PO D 10/20/15 Lisinopril 20 mg PO D 10/20/15 Paricalcitol [Zemplar] 2 mcg PO [id number] 10/20/15 Vit B Comp&C/Folic Acid/Vit D3 [Dialyvite 800 Plus D Wafer] 1 tab PO D 10/20/15 levETIRAcetam [Keppra] 500 mg PO BID 10/20/15 Divalproex Sodium [Divalproex Sodium ER] 500 mg PO BID 01/17/16 Ergocalciferol (Vitamin D2) [Vitamin D2] 50,000 unit PO WEEK 01/17/16 Medroxyprogesterone Acetate [Provera] 10 mg PO DAILY 01/17/16 Ondansetron HCl Rapdis [Zofran ODT] 4 mg PO Q6 PRN 01/17/16 Topiramate [Topamax] 150 mg PO BID 01/17/16 Vit B Cplx #11/FA/C/Biot/Zn Ox [Dialyvite with Zinc Tablet] 1 each PO 1800 01/16 Quetiapine Fumarate [Seroquel] 50 mg PO BID 11/23/16 Condition: Stable Disposition: XFER [id number] HOSP Decision to Admit: [id number] Date of Decison to Admit: 11/25/16 Decision Time: 20:36
[2016-11-25] MEDS ORDERED: Lidocaine 1% 5ml(IM or SUTURE)(PAIN CLINIC) ONE (20:13)
[2016-11-25 22:45] VITALS: BP 157/95
== END 2016-11-25 21:00 | disposition short-term general hospital (02) ==
LOC: ED 19:10
DX: R56.9 Unspecified convulsions (principal); N18.9 Chronic kidney disease, unspecified
CPT/HCPCS: 99283; S1016

== ENCOUNTER 2016-12-19 13:59 | Outpatient (CLI) | payer MEDICARE, OTHER ==
--- NOTE | 2016-12-19 17:58 | Diagnostic Imaging Report ---
[facility] [address] [facility].[address] [address] Report Submission Date: December 19, 2016 3:11:51 PM CDT Patient Study Name: TUSHAR BROWNE Date: December 19, 2016 2:23:43 PM CDT Modality Type: CR Gender: F Description: LOWER EXTREMITY : 74 Institution: [facility] Physician: MARSHA CAMARGO - OP Bilateral knee 3 views each Clinical history: Chronic bilateral knee pain for many years . There is a slight lateral shifting of the patella right and left which could be a sign of an early osteoarthrosis of the knees. No fractures, dislocation or bone destruction . no joint effusion. No significant spurring and there is no significant narrowing of the joint spaces. Impression: Very minimal early osteoarthrosis of both knees Electronically signed on December 19, 2016 3:11:51 PM CDT by: Tereso ALMEIDA
== END 2016-12-19 14:00 ==
LOC: RAD 13:59
PROVIDERS: ATTEND Family Medicine
DX: M17.0 Bilateral primary osteoarthritis of knee (principal)

== ENCOUNTER 2017-01-09 10:10 | Outpatient (CLI) | payer MEDICARE, OTHER ==
--- NOTE | 2017-01-09 16:47 | Diagnostic Imaging Report ---
[facility] [address] [facility].[address] [address] Report Submission Date: January 09, 2017 3:19:39 PM CDT Patient Study Name: TUSHAR BROWNE Date: January 09, 2017 10:30:30 AM CDT Modality Type: CT\SR Gender: F Description: CT LEG W/O CONTRAST : 74 Institution: [facility] Physician: RAMAN MARSHA - OP CT of the right hip Clinical history: Right hip pain Radiation dose DLP [address] images of the right hip followed by sagittal and coronal reformatted images demonstrates , marginal spurs and an ossicle at the posterior superior margin of the right acetabulum without visible fractures or bone metastases. The head and neck of the right femur are normal. No fractures or bone destruction. Impression: An ossicle and marginal spur at the posterior superior margin of the right acetabulum without visible acute bony pathology Electronically signed on January 09, 2017 3:19:39 PM CDT by: Tereso ALMEIDA
== END 2017-01-09 10:11 ==
LOC: LAB 10:10 → RAD 10:11
PROVIDERS: ATTEND Family Medicine
DX: M16.11 Unilateral primary osteoarthritis, right hip (principal)
CPT/HCPCS: 36415; 73700; 86703

== ENCOUNTER 2017-01-25 09:33 | Outpatient (CLI) | payer MEDICARE, OTHER | END 2017-01-25 09:34 | LOC: OUT 09:33 | PROVIDERS: ATTEND Colon & Rectal Surgery | DX: K64.8 Other hemorrhoids (principal); K62.5 Hemorrhage of anus and rectum; K52.9 Noninfective gastroenteritis and colitis, unspecified; Z99.2 Dependence on renal dialysis | CPT/HCPCS: G0463 ==

== ENCOUNTER 2017-02-26 13:24 | Emergency (ER) | payer MEDICARE, OTHER ==
[2017-02-26 14:00] LABS: BASOPHILS % 0.8 (0.0-1.5); EOSINOPHILS % 2.2 % (0.0-6.8); MEAN CORPUSCULAR HEMOGLOBIN 34.7 pg (28.0-34.0); MEAN CORPUSCULAR VOLUME 105.1 fl (80.0-100.0); MONOCYTES % 5.6 % (0.0-11.0); NEUTROPHILS # 1.9 # k/uL (1.4-7.7)
--- NOTE | 2017-02-26 14:00 | ED Physician Documentation ---
Seizure - HISTORIAN Historian: patient - HPI Chief Complaint: Seizure Timing/Onset/Duration: single episode Last known Well Date: 02/26/17 Last Known Well Time: 12:00 Last known Well Code/Unknown Code: Known Witnessed By: other (dialysis staff) Preceding Symptoms: other (Patient denies any preceding symptoms) Character of Seizure(s): shaking in one area. denies: lost consciousness, unresponsiveness, stopped breathing Postictal Symptoms: none Location of Injury: none Further Comments: yes (46 year old female patient brought in via EMS from the dialysis clinic. Per dialysis nurse, patient had been running 45 minutes when she began having tremors of her arms and legs, then whole body, patient would not respond verbally, cyanosis developed around lips, 911 was called. Entire episode lasted 12 minutes. Nurse reports patient has not had a seizure during dialysis in 3-4 months. Fluid bolus of 300cc was given and blood washed backed. Fistula in Left upper arm remains canulated. Patient denies any recent illness. C/O "severe" leg pain when she woke up this morning. Denies missing any medications, denies fever, nausea, cough, reports chronic diarrhea. Reports last seizure was 2 months ago.) - ROS NEURO/PSYCH: anxiety, depression. denies: headache, fainting EYES/ENT: none CVS/RESP: none GI/: denies: adominal pain, nausea, vomiting, diarrhea MS/SKIN/LYMPH: leg pain (bilateral lower legs) - PAST HX Previous seizure/seizure disorder: long-standing Etiology: craniotomy (S/P meningitis, steel plate left parietal area) Other History: hypertension, psychiatric disorder (bipolar), other (ESRD, CVA, Trach) Allergies/Adverse Reactions: Allergies Allergy/AdvReac Type Severity Reaction Status Date / Time acetaminophen [From Midol] Allergy Verified 11/25/16 19:15 chocolate flavor Allergy Verified 02/26/17 13:39 NSAIDS (Non-Steroidal Allergy Verified 02/26/17 13:39 Anti-Inflamma pamabrom [From Midol] Allergy Verified 02/26/17 13:39 phenytoin sodium Allergy Verified 02/26/17 13:39 [From Dilantin] phenytoin sodium extended Allergy Verified 02/26/17 13:39 [From Dilantin] diphenhydramine HCl AdvReac Face Verified 02/26/17 13:39 [From Luda] Swelling Home Medications: Ambulatory Orders Medication Instructions Recorded Atorvastatin Calcium [Lipitor] 80 mg PO HS 10/20/15 Calcium Acetate 667 mg PO TID 10/20/15 Cinacalcet HCl [Sensipar] 30 mg PO D 10/20/15 Paricalcitol [Zemplar] 2 mcg PO [id number] 10/20/15 Vit B Comp&C/Folic Acid/Vit D3 1 tab PO D 10/20/15 [Dialyvite 800 Plus D Wafer] Divalproex Sodium [Divalproex 500 mg PO BID 01/17/16 Sodium ER] Ergocalciferol (Vitamin D2) 50,000 unit PO WEEK 01/17/16 [Vitamin D2] Medroxyprogesterone Acetate 10 mg PO DAILY 01/17/16 [Provera] Ondansetron HCl Rapdis [Zofran ODT] 4 mg PO Q6 PRN 01/17/16 Topiramate [Topamax] 150 mg PO BID 01/17/16 Vit B Cplx #11/FA/C/Biot/Zn Ox 1 each PO 1800 01/17/16 [Dialyvite with Zinc Tablet] - SOCIAL HX Smoking History: cigarettes Alcohol Use: other (history of abuse) Drug Use: methamphetamines (history of abuse) - FAMILY HX Family History: denies: none - VITAL SIGNS Vital Signs: Vital Signs Temp Pulse Resp BP Pulse Ox 98.4 F 78 16 158/79 96 02/26/17 13:42 02/26/17 13:42 02/26/17 13:42 02/26/17 13:42 02/26/17 13:42 - REVIEWED ASSESSMENTS Nursing Assessment Reviewed: Yes Vitals Reviewed: Yes Progress - Progress Progress: Left upper arm dialysis fistula cannulated. Reviewed lab results with patient, call to [facility], will accept patient back for removal of dialysis needles and discharge home. Instructed patient to follow up with neurology this week and continue all medications as prescribed. Patient requesting refill of proair inhaler. No seizure like activity while in ER. ED Results Lab/Radiology - Lab Results Lab Results: Lab Results 02/26/17 02/26/17 13:50 13:50 WBC 3.50 K/ul L K/ul (4.00-12.00) RBC 2.86 M/ul L M/ul (3.90-5.20) Hgb 9.9 g/dL L g/dL (12.0-16.0) Hct 30.1 % L % (34.5-46.5) MCV 105.1 fl H fl (80.0-100.0) MCH 34.7 pg H pg (28.0-34.0) MCHC 33.0 g/dL g/dL (30.0-36.0) RDW 15.9 % H % (11.3-14.3) Plt Count 130 K/mm3 K/mm3 (130-400) Neut % (Auto) 54.6 % % (39.0-79.0) Lymph % (Auto) 35.0 % % (16.0-50.0) [place] % (Auto) 5.6 % % (0.0-11.0) Eos % (Auto) 2.2 % % (0.0-6.8) Baso % (Auto) 0.8 (0.0-1.5) Neut # (Auto) 1.9 # k/uL # k/uL (1.4-7.7) Lymph # (Auto) 1.2 # k/uL # k/uL (0.6-4.0) [place] # (Auto) 0.2 # k/uL # k/uL (0.0-0.9) Eos # (Auto) 0.1 # k/uL # k/uL (0.0-0.6) Baso # (Auto) 0.0 # k/uL # k/uL (0.0-0.5) Reactive Lymphs % 1.8 % % (0.0-5.0) Reactive Lymphs # 0.1 # k/uL # k/uL (0.0-0.8) Sodium 139 mmol/L mmol/L (136-145) Potassium 4.0 mmol/L mmol/L (3.5-5.0) Chloride 102 mmol/L mmol/L (98-110) Carbon Dioxide 27 mmol/L mmol/L (20-32) BUN 47 mg/dL H mg/dL (10-26) Creatinine 5.9 mg/dL H mg/dL (0.4-1.5) Estimated Creat Clear 13 Est GFR ( Amer) 10 L (60 - ) Est GFR (Non-Af Amer) 8 L (60 - ) Glucose 130 mg/dL H mg/dL (70-99) Calcium 8.7 mg/dL mg/dL (8.5-10.5) Total Bilirubin 0.3 mg/dL mg/dL (0.2-1.2) AST 22 U/L U/L (0-41) ALT 23 U/L U/L (0-45) Alkaline Phosphatase 339 U/L H U/L (46-116) Total Protein 6.2 g/dL g/dL (6.0-8.5) Albumin 3.4 g/dL g/dL (3.0-5.5) - Orders Orders: ED Orders Category Date Time Status CBC/PLATELET/DIFF Stat Lab 02/26/17 13:50 Completed CMP Stat Lab 02/26/17 13:50 Completed UDS [DRUG SCREEN URINE MEDICAL ONLY] Stat Lab 02/26/17 14:35 Received VALPROIC ACID LEVEL Stat Lab 02/26/17 13:50 Received Seizure Physical Exam - Physical Exam General Appearance: no acute distress, alert Altered Mental Status Higher Functions: alert, oriented x3, no evidence of acute CVA, mood/affect nml EENT: nml eye inspection, PERRL, nml ENT inspection, no apparent trauma, pharynx nml Respiratory: no resp. distress, breath sounds nml, no evidence of rib injury, other (healed trach scar) CVS: reg rate & rhythm, heart sounds normal, equal pulses, no murmur, no gallop , PMI nml, no JVD, no friction rub, 24 Abdomen: non-tender, no organomegaly, nml bowel sounds, no distention Skin: normal color, warm/dry, NR, INT, PAL, DR Extremities: normal range of motion, non-tender, normal inspection, no pedal edema, no calf tenderness, normal capillary refill Observed Seizure Activity in ED: other (NONE). No: focal - Nexus Criteria Neg Nexus Criteria: Nexus criteria neg Discharge Clincal Impression: Seizure, Dialysis patient Referrals: Bharat Ruiz MD [Primary Care Provider] - 2 Days Home Medications: Ambulatory Orders Atorvastatin Calcium [Lipitor] 80 mg PO HS 10/20/15 Calcium Acetate 667 mg PO TID 10/20/15 Cinacalcet HCl [Sensipar] 30 mg PO D 10/20/15 Paricalcitol [Zemplar] 2 mcg PO [id number] 10/20/15 Vit B Comp&C/Folic Acid/Vit D3 [Dialyvite 800 Plus D Wafer] 1 tab PO D 10/20/15 Divalproex Sodium [Divalproex Sodium ER] 500 mg PO BID 01/17/16 Ergocalciferol (Vitamin D2) [Vitamin D2] 50,000 unit PO WEEK 01/17/16 Medroxyprogesterone Acetate [Provera] 10 mg PO DAILY 01/17/16 Ondansetron HCl Rapdis [Zofran ODT] 4 mg PO Q6 PRN 01/17/16 Topiramate [Topamax] 150 mg PO BID 01/17/16 Vit B Cplx #11/FA/C/Biot/Zn Ox [Dialyvite with Zinc Tablet] 1 each PO 1800 01/16 Condition: Stable Disposition: 01 HOME, SELF-CARE Decision to Admit: NO Decision Time: 15:03
[2017-02-26 15:10] VITALS: BP 143/77
[2017-02-27 05:51] LABS: AMPHETAMINE NEGATIVE ng/mL (<1000); BARBITURATES NEGATIVE ng/mL (<300); CANNABINOIDS NEGATIVE ng/mL (<50); COCAINE NEGATIVE ng/mL (<150); METHAMPHETAMINE NEGATIVE ng/mL (<1000); METHYLENEDIOXYMETHAMPHETAMINE NEGATIVE ng/mL (<500)
== END 2017-02-26 15:05 | disposition home or self-care (01) ==
LOC: ED 13:24
DX: G40.409 Other generalized epilepsy and epileptic syndromes, not intractable, without status epilepticus (principal)
CPT/HCPCS: 36415; 80053; 80164; 85025; G0481; 80377; 99283

== ENCOUNTER 2017-03-02 11:08 | Emergency (ER) | payer MEDICARE, OTHER ==
[2017-03-02] MEDS: VALPROIC ACID (AS SODIUM SALT) 250 MG/5 ML BOTTLE PO SCH (11:36)
[2017-03-02] MEDS: TOPIRAMATE 50 MG TABLET PO ONE (11:36)
[2017-03-02 11:39] VITALS: BP 173/97
[2017-03-02] MEDS ORDERED: TOPIRAMATE 50 MG TABLET PO SCH (12:00)
--- NOTE | 2017-03-02 15:29 | ED Physician Documentation ---
Seizure - HISTORIAN Historian: patient - HPI Stated Complaint: seizure Chief Complaint: Seizure Additional Information: Had 1-2 seizures this am while drinking coffee. Just seen 02/26/17 for seizures. Timing/Onset/Duration: multiple episodes Last known Well Date: 03/02/17 Last Known Well Time: 10:00 Last known Well Code/Unknown Code: Unknown Witnessed By: family Preceding Symptoms: change in medication Activity Prior to Seizure: coffee Character of Seizure(s): "shaking all over". denies: incontinence of urine, incontinence of stool Postictal Symptoms: none Location of Injury: none Further Comments: no - ROS NEURO/PSYCH: denies: headache, fainting, dizziness, anxiety, depression EYES/ENT: none CVS/RESP: none GI/: denies: adominal pain, nausea, vomiting, diarrhea, black stools, problems urinating MS/SKIN/LYMPH: none - PAST HX Previous seizure/seizure disorder: frequent, long-standing Etiology: idiopathic Other History: hypertension, other (migraine, seizures) Surgeries/Procedures: none Immunizations: referred to PCP Allergies/Adverse Reactions: Allergies Allergy/AdvReac Type Severity Reaction Status Date / Time acetaminophen [From Midol] Allergy Verified 03/02/17 11:17 chocolate flavor Allergy Verified 03/02/17 11:17 NSAIDS (Non-Steroidal Allergy Verified 03/02/17 11:17 Anti-Inflamma pamabrom [From Midol] Allergy Verified 03/02/17 11:17 phenytoin sodium Allergy Verified 03/02/17 11:17 [From Dilantin] phenytoin sodium extended Allergy Verified 03/02/17 11:17 [From Dilantin] diphenhydramine HCl AdvReac Face Verified 03/02/17 11:17 [From Benadryl] Swelling Home Medications: Ambulatory Orders Medication Instructions Recorded Atorvastatin Calcium [Lipitor] 80 mg PO HS 10/20/15 Calcium Acetate 667 mg PO TID 10/20/15 Cinacalcet HCl [Sensipar] 30 mg PO D 10/20/15 Paricalcitol [Zemplar] 2 mcg PO [id number] 10/20/15 Vit B Comp&C/Folic Acid/Vit D3 1 tab PO D 10/20/15 [Dialyvite 800 Plus D Wafer] Divalproex Sodium [Divalproex 500 mg PO BID 01/17/16 Sodium ER] Ergocalciferol (Vitamin D2) 50,000 unit PO WEEK 01/17/16 [Vitamin D2] Medroxyprogesterone Acetate 10 mg PO DAILY 01/17/16 [Provera] Ondansetron HCl Rapdis [Zofran ODT] 4 mg PO Q6 PRN 01/17/16 Topiramate [Topamax] 150 mg PO BID 01/17/16 Vit B Cplx #11/FA/C/Biot/Zn Ox 1 each PO 1800 01/17/16 [Dialyvite with Zinc Tablet] Albuterol Sulfate [Proair HFA] 2 inh IH Q4H #1 hfa.aer.ad 02/26/17 - SOCIAL HX Smoking History: cigarettes Alcohol Use: none Drug Use: none - FAMILY HX Family History: none - VITAL SIGNS Vital Signs: Vital Signs Temp Pulse Resp BP Pulse Ox 98.8 F 75 18 173/97 96 03/02/17 11:11 03/02/17 11:38 03/02/17 11:38 03/02/17 11:38 03/02/17 11:38 - REVIEWED ASSESSMENTS Nursing Assessment Reviewed: Yes Vitals Reviewed: Yes Progress - Results/Orders Results/Orders: no testing ordered - Progress Progress: Pt. given 500 mg Depakote and 100 mg Topamax p.o. in er Critical Care Note - Critical Care Note Total Time (mins): 0 ED Results Lab/Radiology - Lab Results Lab Results: none ordered - Radiology Radiology Impressions: none ordered - Orders Orders: ED Orders Category Date Time Status Topiramate [Topamax] Med 03/02/17 11:23 Discontinued 100 mg PO 1T ONE Topiramate [Topamax] Med 03/02/17 12:00 Discontinued 100 mg PO BID Valproic Acid (As Sodium Salt) [Depakene] Med 03/02/17 12:00 Discontinued 500 mg PO 1T Seizure Physical Exam - Physical Exam General Appearance: no acute distress, alert Altered Mental Status Higher Functions: alert, oriented x3, no evidence of acute CVA, mood/affect nml, eyes open EENT: nml eye inspection, PERRL Neck/Back: normal inspection, thyroid normal Respiratory: no resp. distress, breath sounds nml, no evidence of rib injury CVS: reg rate & rhythm, heart sounds normal, equal pulses, no murmur, no gallop , PMI nml, no JVD Abdomen: non-tender, no organomegaly, nml bowel sounds Skin: warm/dry, normal color Extremities: normal range of motion, non-tender, normal inspection, no pedal edema Observed Seizure Activity in ED: awake, other (no seizure or post ictal activity noted in er) - Nexus Criteria Neg Nexus Criteria: Nexus criteria neg Discharge Clincal Impression: Seizure Referrals: Bharat Ruiz MD [Primary Care Provider] - 2 Days Home Medications: Ambulatory Orders Atorvastatin Calcium [Lipitor] 80 mg PO HS 10/20/15 Calcium Acetate 667 mg PO TID 10/20/15 Cinacalcet HCl [Sensipar] 30 mg PO D 10/20/15 Paricalcitol [Zemplar] 2 mcg PO [id number] 10/20/15 Vit B Comp&C/Folic Acid/Vit D3 [Dialyvite 800 Plus D Wafer] 1 tab PO D 10/20/15 Divalproex Sodium [Divalproex Sodium ER] 500 mg PO BID 01/17/16 Ergocalciferol (Vitamin D2) [Vitamin D2] 50,000 unit PO WEEK 01/17/16 Medroxyprogesterone Acetate [Provera] 10 mg PO DAILY 01/17/16 Ondansetron HCl Rapdis [Zofran ODT] 4 mg PO Q6 PRN 01/17/16 Topiramate [Topamax] 150 mg PO BID 01/17/16 Vit B Cplx #11/FA/C/Biot/Zn Ox [Dialyvite with Zinc Tablet] 1 each PO 1800 01/16 Albuterol Sulfate [Proair HFA] 2 inh IH Q4H #1 hfa.aer.ad 02/26/17 Comments: Discharged in stable condition with recommendation and scripts to increase Topamax by 100 mg/day and Depakote by 500 mg/day. Condition: Stable Disposition: 01 HOME, SELF-CARE Decision to Admit: NO Decision Time: 11:30
== END 2017-03-02 11:38 | disposition home or self-care (01) ==
LOC: ED 11:08
DX: R56.9 Unspecified convulsions (principal)
CPT/HCPCS: 99283; J3490

== ENCOUNTER 2017-03-12 08:51 | Outpatient (CLI) | payer MEDICARE, OTHER | END 2017-03-12 09:00 | LOC: LAB 08:51 | PROVIDERS: ATTEND Internal Medicine Gastroenterology | DX: B18.2 Chronic viral hepatitis C (principal) | CPT/HCPCS: 36415; 83516; 86038; 87900; 87902 ==

== ENCOUNTER 2017-04-20 04:53 | Emergency (ER) | payer MEDICARE, OTHER ==
--- NOTE | 2017-04-20 05:31 | ED Physician Documentation ---
General Adult - HISTORIAN Historian: patient - HPI Stated Complaint: seizure Chief Complaint: General Adult Additional Information: Woke up throwing up and having a bad seizure. Has "PTSD seizures." Says she is under a lot of stress now because she is getting ready to move. No loss bowel or bladder control. Is dialysis patient so doesn't urinate much. Says she feels fine. - ROS CONST: no problems - PAST HX Past History: other (CRF, anxiety) Allergies/Adverse Reactions: Allergies Allergy/AdvReac Type Severity Reaction Status Date / Time acetaminophen [From Midol] Allergy Verified 04/20/17 05:03 chocolate flavor Allergy Verified 04/20/17 05:03 NSAIDS (Non-Steroidal Allergy Verified 04/20/17 05:03 Anti-Inflamma pamabrom [From Midol] Allergy Verified 04/20/17 05:03 phenytoin sodium Allergy Verified 04/20/17 05:03 [From Dilantin] phenytoin sodium extended Allergy Verified 04/20/17 05:03 [From Dilantin] diphenhydramine HCl AdvReac Face Verified 04/20/17 05:03 [From Benadryl] Swelling Home Medications: Ambulatory Orders Medication Instructions Recorded Atorvastatin Calcium [Lipitor] 80 mg PO HS 10/20/15 Calcium Acetate 667 mg PO TID 10/20/15 Cinacalcet HCl [Sensipar] 30 mg PO D 10/20/15 Paricalcitol [Zemplar] 2 mcg PO [id number] 10/20/15 Vit B Comp&C/Folic Acid/Vit D3 1 tab PO D 10/20/15 [Dialyvite 800 Plus D Wafer] Divalproex Sodium [Divalproex 500 mg PO BID 01/17/16 Sodium ER] Ergocalciferol (Vitamin D2) 50,000 unit PO WEEK 01/17/16 [Vitamin D2] Medroxyprogesterone Acetate 10 mg PO DAILY 01/17/16 [Provera] Ondansetron HCl Rapdis [Zofran ODT] 4 mg PO Q6 PRN 01/17/16 Topiramate [Topamax] 150 mg PO BID 01/17/16 Vit B Cplx #11/FA/C/Biot/Zn Ox 1 each PO 1800 01/17/16 [Dialyvite with Zinc Tablet] Albuterol Sulfate [Proair HFA] 2 inh IH Q4H #1 hfa.aer.ad 02/26/17 Zepatier 1 tab PO DAILY 04/20/17 - SOCIAL HX Smoking History: cigarettes Alcohol Use: heavy - FAMILY HX Family History: No - VITAL SIGNS Vital Signs: Vital Signs Temp Pulse Resp BP Pulse Ox 173/97 03/02/17 11:38 - REVIEWED ASSESSMENTS Nursing Assessment Reviewed: Yes Vitals Reviewed: Yes General Adult Physical Exam - PHYSICAL EXAM GENERAL APPEARANCE: no distress EENT: eye inspection normal, ENT inspection normal (except edentulous) NECK: normal inspection RESPIRATORY: no resp distress, chest non-tender, breath sounds normal CVS: reg rate & rhythm, heart sounds normal ABDOMEN: soft, normal bowel sounds, non-tender RECTAL: deferred BACK: normal inspection SKIN: warm/dry, normal color EXTREMITIES: no evidence of injury NEURO: CN's nml as tested, motor nml, sensation nml, other (talkative ,alert) Discharge Clincal Impression: Anxiety Referrals: Primary Doctor,No [Primary Care Provider] - 2 Days Additional Instructions: Follow up with your provider as needed. Home Medications: Ambulatory Orders Atorvastatin Calcium [Lipitor] 80 mg PO HS 10/20/15 Calcium Acetate 667 mg PO TID 10/20/15 Cinacalcet HCl [Sensipar] 30 mg PO D 10/20/15 Paricalcitol [Zemplar] 2 mcg PO [id number] 10/20/15 Vit B Comp&C/Folic Acid/Vit D3 [Dialyvite 800 Plus D Wafer] 1 tab PO D 10/20/15 Divalproex Sodium [Divalproex Sodium ER] 500 mg PO BID 01/17/16 Ergocalciferol (Vitamin D2) [Vitamin D2] 50,000 unit PO WEEK 01/17/16 Medroxyprogesterone Acetate [Provera] 10 mg PO DAILY 01/17/16 Ondansetron HCl Rapdis [Zofran ODT] 4 mg PO Q6 PRN 01/17/16 Topiramate [Topamax] 150 mg PO BID 01/17/16 Vit B Cplx #11/FA/C/Biot/Zn Ox [Dialyvite with Zinc Tablet] 1 each PO 1800 01/16 Albuterol Sulfate [Proair HFA] 2 inh IH Q4H #1 hfa.aer.ad 02/26/17 Zepatier 1 tab PO DAILY 04/20/17 Condition: Good Disposition: 01 HOME, SELF-CARE Decision to Admit: NO Decision Time: 05:32
[2017-04-20 05:42] VITALS: BP 181/102
== END 2017-04-20 05:30 | disposition home or self-care (01) ==
LOC: ED 04:53
DX: F41.9 Anxiety disorder, unspecified (principal)
CPT/HCPCS: 99283